=== PATIENT | female | born 1990 | race Caucasian/White ===

== ENCOUNTER 2023-01-03 10:45 | Emergency (ER) | payer MEDICAID ==
[~2023-01-03] VITALS: Ht 167.6 cm; Wt 44.0 kg
[2023-01-03 10:46] VITALS: TEMP 97
[2023-01-03] MEDS ORDERED: normal saline 1000ML IV soln IVB ONE (11:50)
[2023-01-03] MEDS ORDERED: morphine 4 MG/ML inj SYRINge IV ONE (11:50)
[2023-01-03] MEDS ORDERED: ketorolac trometh. 30mg/ml inj. IV ONE (11:50)
[2023-01-03] MEDS ORDERED: ondansetron/PF 4mg/2ml inj IV ONE (11:50)
[2023-01-03] MEDS ORDERED: famotidine/PF 10 mg/ml inj IV ONE (11:50)
[2023-01-03 11:54] LABS: BASOPHILS % (AUTO) 0.6 % (0-1); EOSINOPHILS # (AUTO) 0.1 X10'3 (0-0.9); EOSINOPHILS % (AUTO) 2.6 % (0-6); HEMATOCRIT 41.9 % (35.0-45.0); HEMOGLOBIN 13.9 g/dl (12.0-16.0); LYMPHOCYTES # (AUTO) 1.8 X10'3 (1.1-4.8); LYMPHOCYTES % (AUTO) 31.7 % (21-51); MEAN CORPUSCULAR HEMOGLOBIN 29.7 PG (27.0-31.0); MEAN CORPUSCULAR HGB CONC 33.1 g/dL (33.0-36.5); MEAN CORPUSCULAR VOLUME 89.8 FL (78-98); MEAN PLATELET VOLUME 7.6 FL (7.4-10.4); MONOCYTES # (AUTO) 0.6 X10'3 (0-0.9); MONOCYTES % (AUTO) 10.3 % (2-12); NEUTROPHILS # (AUTO) 3.2 X10'3 (1.8-7.7); NEUTROPHILS % (AUTO) 54.8 % (42-75); PLATELET COUNT 250 X10'3 (140-440); RED BLOOD COUNT 4.67 X10'6 (4.20-5.60); RED CELL DISTRIBUTION WIDTH 14.9 % (11.5-14.5); WHITE BLOOD COUNT 5.8 X10'3 (4.5-11.0)
[2023-01-03 12:00] VITALS: PULSE 66; O2SAT 98
[2023-01-03 12:13] LABS: ALANINE AMINOTRANSFERASE 17 U/L (12-78); ALBUMIN 4.1 G/DL (3.4-5.0); ALBUMIN/GLOBULIN RATIO 1.2 (1.1-1.5); ALKALINE PHOSPHATASE 82 IU/L (46-116); ANION GAP 9 (8-16); ASPARTATE AMINO TRANSFERASE 20 U/L (10-37); BILIRUBIN,TOTAL 0.6 MG/DL (0.1-1.0); BLOOD UREA NITROGEN 12 MG/DL (7-18); CALCIUM 9.4 MG/DL (8.5-10.1); CHLORIDE 104 MMOL/L (99-107); GLUCOSE 131 MG/DL (70-104); POTASSIUM 4.1 MMOL/L (3.5-5.1); SODIUM 139 MMOL/L (135-145); TOTAL CARBON DIOXIDE 25.8 MMOL/L (24-32); TOTAL PROTEIN 7.4 G/DL (6.4-8.2); eCRCL 71 ML/MIN; eGFR 84 ML/MIN
[2023-01-03 12:20] LABS: BETA HCG,QUANTITATIVE < 1.0 mIU/ml; LIPASE 62 U/L (73-393)
[2023-01-03 12:22] VITALS: RESP 16
[2023-01-03 13:45] LABS: BILIRUBIN,URINE NEGATIVE (Neg); CLARITY,URINE CLEAR (Clear); COLOR,URINE YELLOW (Yellow); GLUCOSE, URINE NEGATIVE (Neg); KETONES,URINE TRACE mg/dl (Neg); LEUKOCYTE ESTERASE ,URINE NEGATIVE (Neg); NITRITES, URINE NEGATIVE (Neg); OCCULT BLOOD,URINE NEGATIVE (Neg); PROTEIN,URINE 30 mg/dl (Neg)
[2023-01-03 13:49] LABS: URINE AMPHETAMINE SCREEN NEGATIVE (Neg); URINE BARBITUATE SCREEN NEGATIVE (Neg); URINE BENZODIAZEPINES SCREEN NEGATIVE (Neg); URINE CANNABINOID SCREEN POSITIVE (Neg); URINE COCAINE SCREEN NEGATIVE (Neg); URINE METHADONE SCREEN NEGATIVE (Neg); URINE OPIATE SCREEN POSITIVE (Neg); URINE PHENCYCLIDINE SCREEN NEGATIVE (Neg)
[2023-01-03 13:50] LABS: UA COLLECTION TYPE CLN CATCH MIDSTREAM
[2023-01-03 13:51] LABS: BACTERIA,URINE FEW /HPF (Neg); MUCUS STRANDS MANY /LPF (Neg); RBC,URINE 0-2 /HPF (0-2); SQUAMOUS EPITHELIAL CELL,UR MANY /LPF (FEW); WBC,URINE 0-4 /HPF (0-4)
[2023-01-03] MEDS ORDERED: NAPR-56 PO (14:00)
[2023-01-03] MEDS ORDERED: ONDA4TAB12 PO (14:00)
[2023-01-03 14:18] VITALS: BP 97/57
== END 2023-01-03 14:19 | disposition home or self-care (01) ==
LOC: ER 10:45
DX: O26.891 Other specified pregnancy related conditions, first trimester (principal); R10.2 Pelvic and perineal pain; R10.30 Lower abdominal pain, unspecified; R11.0 Nausea; Z3A.01 Less than 8 weeks gestation of pregnancy
CPT/HCPCS: 36415; 76830; 76856; 80053; 80305; 81001; 83690; 84702; 85025; 93976; 96374; 96375; 99285; J1885; J2270; J2405; J3490; J7030

== ENCOUNTER 2023-05-18 14:01 | Emergency (ER) | payer MEDICAID ==
[~2023-05-18] VITALS: Ht 167.6 cm; Wt 48.7 kg
[~2023-05-18 14:01] MED LIST: ONDA4TAB12 PO
[2023-05-18 14:13] VITALS: BP 116/69; PULSE 60; TEMP 98; O2SAT 99
[2023-05-18] MEDS ORDERED: NAPR-56 PO (14:18)
[2023-05-18] MEDS ORDERED: DOXY-1 PO (14:18)
[2023-05-18] MEDS ORDERED: ketorolac trometh. 30mg/ml inj. IM ONE (14:20)
[2023-05-18 14:32] VITALS: RESP 18
== END 2023-05-18 14:34 | disposition home or self-care (01) ==
LOC: ER 14:02
DX: K04.7 Periapical abscess without sinus (principal); Z79.899 Other long term (current) drug therapy
CPT/HCPCS: 96372; 99283; J1885

== ENCOUNTER 2024-01-09 17:48 | Emergency (ER) | payer MEDICAID ==
[~2024-01-09] VITALS: Ht 162.6 cm; Wt 49.4 kg
[~2024-01-09 17:48] MED LIST changes: +ONDA-243 PO; -ONDA4TAB12 PO
[2024-01-09 18:35] LABS: STREP A SCREEN NEGATIVE (Neg)
[2024-01-09] MEDS ORDERED: LIDO20SO16 PO (18:43)
[2024-01-09 18:50] VITALS: BP 122/68; PULSE 84; RESP 14; TEMP 98.2; O2SAT 98
== END 2024-01-09 18:52 | disposition home or self-care (01) ==
LOC: ER 17:48
DX: J02.9 Acute pharyngitis, unspecified (principal); Z79.899 Other long term (current) drug therapy
CPT/HCPCS: 87081; 87880; 99283

== ENCOUNTER 2025-02-11 20:55 | Emergency (ER) | payer MEDICAID ==
[~2025-02-11] VITALS: Ht 167.6 cm; Wt 60.0 kg
[~2025-02-11 20:55] MED LIST changes: +LIDO20SO16 PO
[2025-02-11 21:36] LABS: MEAN PLATELET VOLUME 7.2 FL (7.4-10.4); RED CELL DISTRIBUTION WIDTH 12.4 % (11.5-14.5)
[2025-02-11 21:50] LABS: HCG SERUM QL POSITIVE
[2025-02-11 21:52] LABS: CREATININE 0.68 MG/DL (0.40-0.90); TOTAL CARBON DIOXIDE 30.1 MMOL/L (24-32); eCRCL 111 ML/MIN; eGFR > 90 ML/MIN
--- NOTE | 2025-02-11 22:24 | Physician Documentation ---
History of Present Illness Chief Complaint: Abdominal Pain Stated Complaint: COMPLICATIONS Time Seen by MD: 22:24 Primary Medical Doctor: NO PMD Mode of Arrival: POV HPI 34-year-old female who presents with abdominal cramping and vaginal bleeding in the setting of a positive test She tells me her last period was about a month or 2 ago. She did do a home test that was positive and went to the clinic and had a positive test confirmed. Today she presents with lower abdominal cramping, which she states feels like menstrual cramping. She started having some spotting over the past couple of days, and today is having vaginal bleeding. She is passing some small clots. She does have a history of a miscarriage, and states that this feels similar. No fevers or other infectious symptoms. Medication Reconciliation Allergies: Coded Allergies: No Known Allergies (Unverified , 01/09/24) Scheduled Lidocaine Hcl (Xylocaine Viscous), 5 ML PO Q2H PRN SORE THROAT ONDANSETRON ODT 4mg tablet (Ondansetron Odt), 4 MG PO BID Past Medical History Past Medical History: No Pertinent History Past Surgical History: noncontributory Lives with: S/O Lives In: Home Review of Systems Constitutional: Denies: fever Gastrointestinal: Reports: abdominal pain Female Genitalia: Reports: abnormal bleeding, Physical Exam Vital Signs: Temperature: 97.6, Source: Temporal, Heart Rate: 68, Respiratory Rate: 16, BP: 104/72, Pulse Oximetry: 99, Weight: 60.000 Oxygen Flow Rate: 0 Physical Exam General: This is a pleasant and overall well-appearing young woman, not in distress HEENT: Atraumatic, oropharynx is moist Heart: Regular rate and rhythm, normal-appearing peripheral perfusion Lungs: normal work of breathing, normal oxygen saturation on room air Abdomen: Soft, nondistended, no significant tenderness, only mild discomfort on palpation in the lower abdomen, no rebound or guarding or peritoneal findings Neuro: Alert and oriented Psychiatric: Calm and cooperative with exam Progress Results/Orders Results/Orders Vital Signs 02/11/25 02/11/25 02/11/25 20:59 22:04 22:07 Temp 97.6 Pulse 60 68 Resp 18 16 16 B/P (MAP) 97/68 104/72 (83) Pulse Ox 100 99 O2 Flow Rate 0 0 Laboratory Tests Test 02/11/25 21:20 White Blood Count 10.5 Red Blood Count 4.38 Hemoglobin 14.2 Hematocrit 42.1 Mean Corpuscular Volume 96.1 Mean Corpuscular Hemoglobin 32.3 H Mean Corpuscular Hemoglobin Concent 33.7 Red Cell Distribution Width 12.4 Platelet Count 338 Mean Platelet Volume 7.2 L Neutrophils (%) (Auto) 68.0 Lymphocytes (%) (Auto) 19.4 L Monocytes (%) (Auto) 9.8 Eosinophils (%) (Auto) 2.3 Basophils (%) (Auto) 0.5 Neutrophils # (Auto) 7.1 Lymphocytes # (Auto) 2.0 Monocytes # (Auto) 1.0 H Eosinophils # (Auto) 0.2 Basophils # (Auto) 0.1 CBC Comment Sodium Level 140 Potassium Level 3.8 Chloride Level 104 Carbon Dioxide Level 30.1 Anion Gap 6 L Blood Urea Nitrogen 9 Creatinine 0.68 Estimated GFR/1.73 m2 > 90 BUN/Creatinine Ratio 13.2 Glucose Level 110 H Calcium Level 9.3 Total Bilirubin 0.1 Aspartate Amino Transf (AST/SGOT) 19 Alanine Aminotransferase (ALT/SGPT) 15 Alkaline Phosphatase 105 Total Protein 7.0 Albumin 3.6 Globulin 3.4 Albumin/Globulin Ratio 1.1 Lipase 34 Human Chorionic Gonadotropin, Qual Positive Chemistry Comments EKG/XRAY/CT/US/VASC/MRI Ultrasound : Ultrasound of: obstetric Impression No evidence of , ectopic , pelvic free fluid, or other abnormality on preliminary camera technician report Medical Decision Making Differential Dx:Considerations: Include: -Complete, - Incomplete, -Inevitable, -Threatened Additional Comments Differential includes miscarriage, ectopic , acute anemia Assessment The patient presents with abdominal cramping and vaginal bleeding in the setting of early . Per her history and exam this all appears consistent with a miscarriage. She has a benign abdominal exam. Labs were unremarkable. HCG level is elevated as expected in her early . Ultrasound shows no acute complication or evidence of ectopic . She was given Tylenol for pain. I explained all of these results. She has a follow up appointment this week in the OB clinic. She will contact them on Thursday to arrange a repeat hCG level. Return precautions given. She will be discharged home with symptomatic treatment. Departure Time of Disposition: 00:49 Disposition: 01 HOME / SELF CARE / HOMELESS Impression: Primary Impression: Miscarriage Condition: Stable Discharge Instructions: Miscarriage Referrals: NO PRIMARY CARE PROVIDER (PCP) Education Educated: Patient Educated regarding: diagnosis, treatment, need for follow up Signature Scribe Signature: na Attestation: PARVEZ Jara MD Feb 11, 2025 22:24
[2025-02-12 01:09] VITALS: BP 91/57; PULSE 69; RESP 16; TEMP 97.6; O2SAT 98
--- NOTE | 2025-02-12 01:28 | RADIOLOGY REPORT ---
OB ULTRASOUND <14 WEEKS: HISTORY: early , vag bleeding/pain TECHNIQUE: Multiple real-time grayscale sonographic images of the pelvis with duplex doppler color flow, spectral and M-mode analysis. COMPARISON: US ULTRASOUND PELVIS W/ORWO DPLX on DOS: 01/03/23 FINDINGS: The uterus measures 7.8 X 4.4 X 5.4 cm The cervix is unremarkable. Right ovary measures 1.6 x 1.3 x 2.4 cm with normal doppler color flow. Left ovary measures 1.8 X 2.0 X 1.8 cm with normal Doppler color flow. No instrumentation is seen. No adnexal mass. IMPRESSION: No intrauterine gestation or ectopic is seen. Serial beta ACG recommended
== END 2025-02-12 01:13 | disposition home or self-care (01) ==
LOC: ER 20:55
DX: O03.9 Complete or unspecified spontaneous abortion without complication (principal); R10.2 Pelvic and perineal pain; Z79.899 Other long term (current) drug therapy
CPT/HCPCS: 36415; 76801; 76817; 80053; 83690; 84702; 84703; 85025; 99285

== ENCOUNTER 2025-02-19 15:26 | Emergency (ER) | payer MEDICAID ==
[~2025-02-19] VITALS: Ht 167.6 cm; Wt 59.1 kg
[2025-02-19 15:29] VITALS: BP 105/72; PULSE 91; TEMP 97.6; O2SAT 98
--- NOTE | 2025-02-19 16:45 | Physician Documentation ---
History of Present Illness ~ Chief Complaint: Flank Pain Stated Complaint: BACK PAIN Time Seen by MD: 16:21 Primary Medical Doctor: NO PMD HPI 34-year-old female presents to the ED after having a miscarriage a proximally one week ago which was confirmed last Thursday. 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 He is wondering if her miscarriage is related to her symptoms. Denies any trauma or recent injury. It is it hurts from sitting to standing and has difficulty getting comfortable in her bed. Denies any urinary symptoms Patient denies any numbness tingling or incontinence Day of Onset: Feb 19, 2025 Medication Reconciliation Allergies: Coded Allergies: No Known Allergies (Unverified , 01/09/24) Scheduled Lidocaine Hcl (Xylocaine Viscous), 5 ML PO Q2H PRN SORE THROAT ONDANSETRON ODT 4mg tablet (Ondansetron Odt), 4 MG PO BID Past Medical History Past Medical History: No Pertinent History Past Surgical History: noncontributory Lives with: S/O Lives In: Home Review of Systems All Other Systems at this time: Reviewed and Negative ROS As stated above in the HPI, otherwise all systems are reviewed and negative. Physical Exam Physical Exam Vital Signs: Temperature: 97.6, Source: Temporal, Heart Rate: 91, Respiratory Rate: 18, BP: 105/72, Pulse Oximetry: 98, Weight: 59.100 Oxygen Flow Rate: 0 Physical Exam General: Alert, no apparent distress. HEENT: PERRL, EOMI, no injection, moist mucous membranes. Back: Tender to the lumbar region via palpation. Gastrointestinal: Soft, nontender, nondistended. Bowels sounds present. Negative CVA tenderness Extremities: Normal range of motion, no deformity. Neurologic: Oriented x4. Psychiatric: Normal mood and affect. Skin: Normal color, warm and dry. No edema, no ecchymosis. Progress Results/Orders Results/Orders Orders - PRO LEONE SEA KAYAKING GUIDE Urinalysis, Cult If Indicated (02/19/25 16:36) Completed Orders - PRO LEONE SEA KAYAKING GUIDE Ketorolac Trometh 30mg/Ml Vial (Toradol (02/19/25 16:35) Medications Received in ER Medications (Trade) Dose Ordered Sig/Lita Route PRN Reason Start Time Stop Time Status Last Admin Dose Admin (Toradol inj. 30mg/ml) 30 mg ONCE ONCE IM 02/19/25 16:35 02/19/25 16:37 DC 02/19/25 16:52 30 MG Vital Signs 02/19/25 02/19/25 15:29 16:52 Temp 97.6 Pulse 91 Resp 18 16 B/P (MAP) 105/72 Pulse Ox 98 O2 Flow Rate 0 Laboratory Tests Test 02/19/25 16:40 Urine Comment Medical Decision Making Findings Patient presents with a suspected lumbar strain secondary to her occupation. He has been a good deal of time talking to her about her occupation and how it can lead to lumbar strain. Not present with any signs of urinary tract infection or kidney stones based on her urinalysis. Nor does she have any CVA tenderness. The Toradol given to her effectively reduced her symptoms. I think she would largely benefit from physical therapy to prevent further exacerbation Differential Dx:Considerations: Include: AAA, Aortic dissection, , Appendicitis, Bowel obstruction, Cholelithiasis, Cholangitis, DJD, Ectopic pregn erin, Fracture, Hepatitis, HNP, Musculoskeletal pain, Pancreatitis, Pyelonephritis, Strain, Urinary obstruction, Urolithiasis, Ovarian torsion, Other Departure Disposition: HOME / SELF CARE / HOMELESS Impression: Primary Impression: Strain of lumbar region Discharge Instructions: Lumbosacral Strain Referrals: NO PRIMARY CARE PROVIDER (PCP) Prescriptions Naproxen (Naproxen) 500 Mg Tablet 1 TAB PO Q12H, #20 TAB Prov: PRO LEONE NP 02/19/25 Cyclobenzaprine HCl (Cyclobenzaprine HCl) 10 Mg Tablet 1 TAB PO HS for muscle spasms for 30 Days, #30 TAB Prov: PRO LEONE SEA KAYAKING GUIDE 02/19/25 Signature Scribe Signature: y Attestation: Scribed for Pro Leone Trimming Assembler by Pro Juarez NP . 02/19/25 16:45 PRO LEONE NP Feb 19, 2025 16:45
[2025-02-19 16:52] VITALS: RESP 16
[2025-02-19] MEDS: ketorolac trometh 30MG/ML vial 30 MG/ML VIAL IM ONE (16:52)
[2025-02-19] MEDS ORDERED: NAPR-56 PO (17:19)
[2025-02-19] MEDS ORDERED: CYCL-394 PO (17:19)
[2025-02-19 17:21] LABS: LEUKOCYTE ESTERASE ,URINE NEGATIVE (Neg); NITRITES, URINE NEGATIVE (Neg); OCCULT BLOOD,URINE NEGATIVE (Neg)
[2025-02-19 17:24] LABS: UA COLLECTION TYPE CLN CATCH MIDSTREAM
[2025-02-19 17:26] LABS: AMORPHOUS PHOSPHATES 3+; SQUAMOUS EPITHELIAL CELL,UR FEW /LPF (FEW)
== END 2025-02-19 18:11 | disposition home or self-care (01) ==
LOC: ER 15:27
DX: S39.012A Strain of muscle, fascia and tendon of lower back, initial encounter (principal); X58.XXXA Exposure to other specified factors, initial encounter; Y93.89 Activity, other specified; Y92.89 Other specified places as the place of occurrence of the external cause; Y99.8 Other external cause status
CPT/HCPCS: 81001; 96372; 99283; J1885